=== PATIENT | female | born 1955 | race Caucasian/White ===

== ENCOUNTER 2017-01-01 08:58 | Inpatient (IN) | payer MEDICARE, OTHER ==
--- NOTE | ~2017-01-01 | IDS ---
Interim Discharge Summary [facility] [address] [place]. [address] NAME: ADAMS YANG : 59 STATUS : ADM IN [facility]#: [id number] AGE: 61 ADM/REG DATE : 01/01/17 MR#: [id number] REPORT SERV DATE: 01/02/17 DICTATED BY: MELVIN PABON IV DATE: 01/02/17 REPORT STATUS : Draft TRANSCRIBED BY: RONNIE DATE: 01/02/17 ADMISSION DATE: 01/01/2017 DISCHARGE DATE: DATE OF TRANSFER: 01/02/2017 ADMITTING DIAGNOSES: 1. Sepsis with hypotension. 2. Urinary tract infection. 3. Organic brain syndrome. 4. Electrolyte abnormalities, corrected. 5. Seizure disorder. 6. Elevated cholesterol. PROCEDURES: The patient had placement of a PICC line. CONSULTANTS: None. CURRENT MEDICATIONS: Amitiza 24 mcg twice a day, Ativan 0.5 mg three times a day, Celexa 40 mg daily, Clozaril 100 mg twice a day, vancomycin per Pharmacy, Lamictal 250 mg at bedtime and 200 mg in the morning, Lovenox 40 mg subcu daily, melatonin 3 mg at nighttime, Protonix 40 mg p.o. daily, thiamine 100 mg p.o. daily, Zocor 20 mg daily, Zosyn 3.375 q.8 hours, and Florastor one p.o. daily. HOSPITAL COURSE: The patient was recently hospitalized at [facility] on the hospitalist service for a Proteus urinary tract infection. The patient with a pansensitive organism, for which she was transitioned to [facility] and sent home. She did well for several days at home, however, developed listlessness and was hypotensive, for which she was brought back to the emergency room. Despite 2 L of fluid resuscitation, she continued to be hypotensive for which she was admitted to the ICU. Cultures were sent, and she had an elevated white blood cell count, though a normal procalcitonin level. The patient was transiently on Levophed, however, has been off since early this morning. She is currently back to her baseline which is constantly moving and somewhat agitated. She has been initiated on most of her home medications. She did have a low cortisol level though hydrocortisone was not started because she was already off the vasopressor agents. The sitter has due recorded that the patient has had some weight loss, for which I would consider an abdominal CT scan. However, she would likely need to be heavily sedated to obtain an adequate study. Fluids are decreased 75 mL an hour. She has remained on the current medications of the urinary tract with the urine culture negative, chest x-ray clear, and blood cultures currently pending. The patient is felt to be stable for transfer to the floor. We will send her back to the hospitalist service who will assume primary care. Family is aware, the sister is the POA. NELLY/RONNIE Interim Discharge Summary [address] [place]. [address] NAME: ADAMS YANG : 59 STATUS : ADM IN PAT#: [id number] AGE: 61 ADM/REG DATE : 01/01/17 MR#: [id number] REPORT SERV DATE: 01/02/17 DICTATED BY: MELVIN PABON IV DATE: 01/02/17 REPORT STATUS : Draft TRANSCRIBED BY: RONNIE DATE: 01/02/17 Melvin Pabon IV, M.D. / [id number] CC: Chucky Toro IV, M.D.
--- NOTE | ~2017-01-01 | HP ---
History And Physical [facility] [address] [place]. [address] NAME: ADAMS YANG : 59 STATUS : ADM IN [facility]#: [id number] AGE: 61 ADM/REG DATE : 01/01/17 MR#: [id number] REPORT SERV DATE: 01/02/17 DICTATED BY: MELVIN PABON IV DATE: 01/01/17 REPORT STATUS : Draft TRANSCRIBED BY: RONNIE DATE: 01/01/17 DATE OF ADMISSION: 01/01/2017 REASON FOR ADMISSION: Sepsis with hypotension. History was obtained from the caregiver and records. HISTORY OF PRESENT ILLNESS: Ms. Yang is a 61-year-old female with a history of elevated cholesterol, organic brain syndrome, seizure disorder, and autism who was recently hospitalized at [facility] for worsening encephalopathy and urinary tract infection who now presents initially with again altered mental status, however, with hypotension and a further rise in her white blood cell count. The patient was hospitalized approximately a week ago for worsening mental status. She was found to have a urinary tract infection with Proteus that was pansensitive. She had originally been placed on Bactrim at [facility], and when the organism was identified, she was sent home with Bactrim which she has continued. She had reportedly been back to baseline, however, was poorly responsive today. She was found to be hypotensive at the care facility and was sent to the emergency room. Her white count has risen from 8000 to 15,000, and she was hypotensive despite 2 L of IV fluid for which we are asked to admit the patient. The patient was now more awake and quite agitated. She had not received several of her psychiatric medications from earlier in the day. There had been no obvious focality to the patient's exam to include cough, dyspnea, hypoxemia, abdominal pain, diarrhea, nausea, or vomiting. The patient had fewer white blood cell count in her urinalysis. She has had a slowly progressive weight loss without a change in her dietary intake. Pulmonary history is remarkable for no history of childhood asthma, COPD, or previous documented pneumonia. She is reportedly a lifelong nonsmoker. She is reportedly up to date on her immunizations. PAST MEDICAL HISTORY: 1. Organic brain syndrome. 2. Seizure disorder. 3. Autism. 4. Elevated cholesterol. 5. Recent urinary tract infection. 6. Elevated cholesterol. SURGERIES: She had a tubal ligation. OUTPATIENT MEDICATIONS: Tylenol as needed. There are multiple p.r.n. medications. She is on vitamin C 500 mg twice a day, vitamin D3 1000 units twice a day, Celexa 40 mg daily, clozapine 100 mg twice a day, Lamictal 500 mg in the morning and 250 mg in the evening, Ativan 0.5 mg three times a day, Amitiza 24 mcg twice a day, melatonin 3 mg at bedtime, naltrexone 50 mg twice a day, Zocor 20 mg at bedtime, and Bactrim 1 tab q.12 hours. SOCIAL HISTORY: Remarkable for no tobacco, alcohol, or illicit drug use. She lives in [address] [address] NAME: ADAMS YANG : 59 STATUS : ADM IN [facility]#: [id number] AGE: 61 ADM/REG DATE : 01/01/17 MR#: [id number] REPORT SERV DATE: 01/02/17 DICTATED BY: MELVIN PABON IV DATE: 01/01/17 REPORT STATUS : Draft TRANSCRIBED BY: RONNIE DATE: 01/01/17 [facility]. She has a sister who is her POA. SURGICAL HISTORY: Remarkable for tubal ligation. ALLERGIES: LISTED ALLERGIES INCLUDE HALDOL, LOXAPINE, HYDROCORTISONE, FENTANYL, AND MEPERIDINE, SPECIFIC REACTIONS ARE UNKNOWN. FAMILY HISTORY: Not documented, and I did not ask the sister over the phone at the time of our discussion. REVIEW OF SYSTEMS: 14-systems reviewed and pertinent positives noted above. PHYSICAL EXAMINATION: GENERAL: This is a thin, chronically ill-appearing, elderly, female, appearing older than her stated age who is nonverbal, does not make eye contact, and will occasionally flail her extremities. VITAL SIGNS: Temperature is 97.9, pulse is 77, blood pressure is 100/66, respiratory rate is 16, and saturation 98% on room air. HEENT: The patient is normocephalic and atraumatic. She has some facial wrinkling. Pupils do react to light. She moves her eyes in all cervantes. She is edentulous. NECK: Without any palpable lymphadenopathy or thyromegaly. Chest: Difficult to examine since she will make grunting noises; however, seems to be clear to auscultation and percussion. No wheezes, rhonchi, or crackles noted. CARDIOVASCULAR: Jugular venous pulsations appear to be approximately 7 cm end expiration. She has a regular S1 and S2 with no clear murmur, S3, S4. Peripheral pulses are intact. ABDOMEN: Soft and nontender. There are active bowel sounds. There is no palpable hepatosplenomegaly or mass. EXTREMITIES: Demonstrate no cyanosis, clubbing, edema, or palpable cords. NEUROLOGIC: The patient moves all extremities. Strength seems to be 5/5. We cannot design maker sensation. LABORATORY DATA: Chest x-ray demonstrates no focal infiltrate. CBC: Hemoglobin 9.7, hematocrit 29.3, platelet count was 355,000, white count was 15.5 with 12 bands and 1 metamyelocyte. Chemistry: Sodium is 142, potassium 4.0, chloride 105, bicarbonate 28, lactate is 1, BUN of 27, creatinine 1.19, and glucose of 97, AST was slightly elevated at 47, otherwise unremarkable chemistry panel. Urinalysis demonstrates hazy, small leukocyte esterase. The white blood cells are 36, down from greater than 182 in her last hospitalization. ASSESSMENT AND PLAN: 1. Infectious Disease. Add procalcitonin level, we will put in the lab. She will be covered for healthcare organisms though I will change from cefepime to Zosyn because of concern about abdominal source. Further adjustments will depend on culture results. With the weight loss, the patient may benefit from an abdominal CT scan while hospitalized. Cultures have been sent, and there is no evidence for respiratory History And Physical [address] [address] NAME: ADAMS YANG : 59 STATUS : ADM IN [facility]#: [id number] AGE: 61 ADM/REG DATE : 01/01/17 MR#: [id number] REPORT SERV DATE: 01/02/17 DICTATED BY: MELVIN PABON IV DATE: 01/01/17 REPORT STATUS : Draft TRANSCRIBED BY: RONNIE DATE: 01/01/17 source. 2. Cardiovascular. Levophed if the patient's blood pressure drops. IV fluids with D5 LR at 125 mL an hour 3. 3. Renal. Electrolyte replacement protocol. We will add Mag and phos to blood in the lab. We will watch the patient's creatinine which is slightly elevated. 4. Gastrointestinal. N.p.o. except for medications with advance diet in the morning. Protonix to be given for GI prophylaxis. 5. Endocrinologic. Cortisol level will be obtained and thyroid functions will be obtained with her encephalopathy. 6. Neurologic. We will continue her home medications as much as possible. Precedex will be given since she was quite agitated on presentation. We will continue her Ativan though given IV. B12 and folate level will be obtained. 7. Hematologic. Lovenox for DVT prophylaxis. Iron studies will be obtained with low normal parameters. 8. Respiratory. X-ray is clear. Oxygen will be provided if needed to maintain saturations greater than 90%. The patient will be admitted to the MICU. I did speak to the sister. NELLY/RONNIE Melvin Pabon IV, M.D. / [id number] CC: Chucky Toro IV, M.D.
--- NOTE | ~2017-01-01 | IDS ---
Interim Discharge Summary [facility] [address] [place]. [address] NAME: ADAMS YANG : 59 STATUS : ADM IN PAT#: [id number] AGE: 61 ADM/REG DATE : 01/01/17 MR#: [id number] REPORT SERV DATE: 01/09/17 DICTATED BY: DATE: REPORT STATUS : Draft TRANSCRIBED BY: MODL DATE: 01/08/17 ADMISSION DATE: 01/01/2017 DISCHARGE DATE: INTERIM DISCHARGE DIAGNOSES: 1. Sepsis with hypotension. 2. Adrenal insufficiency. 3. Recent UTI with Proteus. 4. Organic brain syndrome. 5. Hypercholesterolemia. 6. Transaminitis. 7. Insomnia. CONSULTING PHYSICIANS: None. IMAGING: Includes multiple portable chest x-rays. Both chest x-rays were negative for an acute cardiopulmonary process. She had a third chest x-ray for placement of PICC line, which showed the tip in the superior vena cava. For full H and P, please refer to Dr. Husam Pabon's dictation on 01/01/2017 as well as his 2 interim discharge summaries; the first being 01/02/2017, and then 01/04/2017. HOSPITAL COURSE: The patient was admitted on 01/01/2017 for sepsis and hypotension. She was in the Intensive Care Unit until 01/05/2017. I took over the patient's care on 01/06/2017. It was believed that the patient had sepsis with hypotension. However, her blood cultures were negative. She did have a history of recent UTI with Proteus mirabilis. It was positive on 12/25/2016. Ultimately, there was not a clear source of infection for the diagnosis of sepsis. The patient was Levophed dependent for her blood pressure. She was placed on full IV steroids. Since 01/06/2017, her blood pressure has been stable. Her physical exam has been unremarkable. She does have organic brain syndrome, and she is nonverbal. Has multiple facial and body tics. She has a sitter with her [address] Pabon believed that she had some adrenal insufficiency. Again, she was on IV steroids. She was on hydrocortisone IV 50 mg q.12. Yesterday, the patient's sister and caregiver reported to me that she had only slept an hour in the last 48 hours and was getting very agitated. My plan was to taper the IV steroids to prevent medication-induced adrenal insufficiency. After talking with Dr. Tello and discussing the symptoms, he suggested that we discontinue the hydrocortisone yesterday and watch the patient overnight to see how she did. She is much more calm today where she was able to sleep overnight. However, she did have some hypotension today with blood pressure in the 90s. I decided that we should probably watch the patient one more night and check a cortisol level in the morning to ensure that she does not need further steroid treatment. Also, she has some transaminitis, so I am going to recheck her AST and ALT in the morning as well. Yesterday, her ALT was 108, and her AST was 82. After discussing this with Dr. Travis Tello, he believes this is likely medication induced. However, I do want check it before she goes to ensure it is not going up instead of down. The patient will go back to [facility] tomorrow if her cortisol level is okay, her blood pressure is stabilized, and transaminitis is improving. The case Interim Discharge Summary [address] [address] NAME: ADAMS YANG : 59 STATUS : ADM IN [facility]#: [id number] AGE: 61 ADM/REG DATE : 01/01/17 MR#: [id number] REPORT SERV DATE: 01/09/17 DICTATED BY: DATE: REPORT STATUS : Draft TRANSCRIBED BY: MODL DATE: 01/08/17 management is aware [facility]. Anthony were setting up for her discharge tomorrow, also to the medication reconciliation and placed on the chart. CLR/MODL Anthony Mitchell NP / [id number] CC: Chucky Wharton APN
--- NOTE | ~2017-01-01 | DS ---
Discharge Summary [facility] [address] [place]. [address] NAME: ADAMS YANG : 59 STATUS : DIS IN PAT#: [id number] AGE: 61 ADM/REG DATE : 01/01/17 MR#: [id number] REPORT SERV DATE: 01/12/17 DICTATED BY: JM ALVARADO DATE: 01/11/17 REPORT STATUS : Draft TRANSCRIBED BY: MODRaimundo DATE: 01/11/17 ADMISSION DATE: 01/01/2017 DISCHARGE DATE: 01/11/2017 REASON FOR ADMISSION: This is a 61-year-old female, who came into the hospital for presumed sepsis with hypotension. The patient had recently been hospitalized with encephalopathy and UTI and came back in with altered mental status and [place]ension [place] [address]. She had been found on outpatient to have UTI with Proteus that was lozoya-sensitive, and had been started on Bactrim. DISCHARGE DIAGNOSES: 1. Hypotension, possibly secondary to urosepsis, also relative adrenal insufficiency. 2. Elevated transaminases. 3. Organic brain syndrome. 4. Insomnia. HOSPITAL COURSE: Please see admission H and P from Husam Pabon MD 01/02/2017 and interim discharge summary from Husam Pabon MD on 01/04/2017, and interim discharge summary from Anthony Mitchell NP on 01/09/2017 for full details on admission and hospital stay. The patient was initially admitted and started on IV vasopressors, was found to have a cortisol level of 8 and was started on stress dose steroids and we were e able to wean her off vasopressors, and she was transferred out to the floor. Since that time, the patient had been completely weaned off steroids. Repeat cortisol level was found to be 11.7, and the patient continued to have hypotension with blood pressures running in the 80s to 90s over 40s and 50s. On 01/10/2017, she was given IV fluid bolus, started on midodrine and hydrocortisone. It was then discovered that the patient's blood pressure was being taken from her ankle because they were supposedly unable to keep the patient still to take her blood pressure in her arm, however, I was able to successfully take her blood pressure in her arm with the caregiver standing there, a sitter standing there, and her blood pressure was 110/60. From then on, blood pressures were checked from her arm, and her last blood pressure taken today before discharge was 122/55. I do recommend continuing her on hydrocortisone at discharge, and she might need to stay on low-dose hydrocortisone indefinitely. We will have her follow up with primary care about this issue. As far as her UTI, repeat urine labs here which showed no evidence of UTI with negative urine cultures x2, and the antibiotics were discontinued. She has had some elevated transaminases. No signs of abdominal pain. The unclear significance could just have been related to her hypotension on admission. No abdominal imaging was done. The patient is unable to sit still for any sort of imaging due to her organic brain syndrome, and her liver function panel has trended down, however, since admission with her ALT being 112 on admission, AST 103 on admission. Last check, her ALT was 103, and AST was 50. DISCHARGE CONDITION: Stable. DISCHARGE MEDICATIONS: 1. Lamictal 300 mg p.o. q.a.m. 2. Lamictal 250 mg p.o. at bedtime. Discharge Summary [address] [address] NAME: ADAMS YANG : 59 STATUS : DIS IN PAT#: [id number] AGE: 61 ADM/REG DATE : 01/01/17 MR#: [id number] REPORT SERV DATE: 01/12/17 DICTATED BY: JM ALVARADO DATE: 01/11/17 REPORT STATUS : Draft TRANSCRIBED BY: RONNIE DATE: 01/11/17 3. Zocor 20 mg p.o. daily. 4. Clozapine 100 mg p.o. b.i.d. 5. Ativan 0.5 mg p.o. t.i.d. 6. Celexa 40 mg p.o. daily. 7. Melatonin 3 mg p.o. at bedtime. 8. Bactroban ointment p.r.n. 9. Fish oil 1200 mg p.o. b.i.d. 10.Vitamin D3 1000 units p.o. b.i.d. 11.Vitamin C 500 mg p.o. b.i.d. 12.Colace 100 mg p.o. daily. 13.Glucosamine chondroitin one tablet p.o. daily. 14.Multivitamin one tablet daily. 15.Calcium 2 tablets p.o. b.i.d. 16.Milk of magnesia p.r.n. 17.Amitiza 24 mcg p.o. b.i.d. 18.Hydrocortisone 40 mg p.o. q.a.m. and 20 mg p.o. q.p.m. x4 days, then 30 mg p.o. q.a.m. and 20 mg p.o. q.p.m. x4 days, then 20 mg p.o. q.a.m. and 10 mg p.o. q.p.m. x4 days, then 10 mg p.o. q.a.m. and 5 mg p.o. q.p.m. indefinitely. DISCHARGE PLAN: Is for patient to return to [facility], PT evaluation here at the hospital which showed that she was at baseline function. I spoke with [facility] Director of Care and confirmed discharge plan. SHU/ANALISAL Jm Alvarado APN / [id number] CC: Chucky Wharton M.D.
--- NOTE | ~2017-01-01 | IDS ---
Interim Discharge Summary [facility] [address] [place]. [address] NAME: ADAMS AYNG : 59 STATUS : ADM IN [facility]#: [id number] AGE: 61 ADM/REG DATE : 01/01/17 MR#: [id number] REPORT SERV DATE: 01/04/17 DICTATED BY: MELVIN PABON IV DATE: 01/04/17 REPORT STATUS : Draft TRANSCRIBED BY: RONNIE DATE: 01/04/17 ADMISSION DATE: 01/01/2017 DISCHARGE DATE: Date of transfer the floor is 01/04/2017. ADMITTING DIAGNOSES: 1. Sepsis with hypotension though with all cultures negative with plan to discontinue Zosyn after doses today. 2. Recent Proteus urinary tract infection. 3. Clinical adrenal insufficiency, on tapering doses of steroids. 4. Organic brain syndrome, on home medications. 5. Elevated cholesterol. 6. Electrolyte abnormalities are being corrected. CONSULTANTS: None. PROCEDURES: The patient had a PICC line placement. CURRENT MEDICATIONS: Amitiza 24 mcg b.i.d., Ativan 0.5 mg q.8 hours, Celexa 40 mg daily, Clozaril 100 mg twice a day, Florastor one twice a day, vancomycin being discontinued now, Zosyn 3.375 g q.8 hours to be can be discontinued after today, Lamictal 250 mg at bedtime and 300 mg in the morning, Lovenox 40 mg daily, Protonix 40 mg daily, Solu-Cortef 50 mg q.8 hours, and Zocor 20 mg daily. HOSPITAL COURSE: The patient presented to the emergency room on 01/01/2017 with lethargy and hypotension. She received 2 units of IV fluid resuscitation. There was a transient improvement in her blood pressure, however, it again decreased. The patient was placed on Levophed, which she had been on an off until 01/03/2017, at which time, it has been discontinued. The patient had cultures performed, which have remained negative. Procalcitonin level was not elevated on two separate checks. She was empirically placed on Zosyn and vancomycin for presumed sepsis. She did have the previous urinary tract infection with Proteus and now has completed 10 days of appropriate therapy. Because of the patient's organic brain syndrome and constant movement, she would not be a candidate for imaging, however, has had normal chest x-ray and no focal findings on clinical exam. Because she continued to require vasopressor agents, a cortisol level was checked which was 8 for which she was placed on stress dose steroids. On the steroids, we were able to wean her off the vasopressors, so I would continue a very slow taper. She had some electrolyte abnormalities, which were corrected. It was felt that she was stable for transfer to the floor on 01/04/2017. We will ask Hospitalist Service to see the patient and assume primary responsibilities. NELLY/RONNIE Interim Discharge Summary [address] [place]. [address] NAME: ADAMS YANG : 59 STATUS : ADM IN PAT#: [id number] AGE: 61 ADM/REG DATE : 01/01/17 MR#: [id number] REPORT SERV DATE: 01/04/17 DICTATED BY: MELVIN PABON IV DATE: 01/04/17 REPORT STATUS : Draft TRANSCRIBED BY: RONNIE DATE: 01/04/17 Melvin Pabon IV, M.D. / [id number] CC: Chucky Toro IV, M.D.
[~2017-01-01 08:58] MED LIST: A&D OINTMENT T; AMITIZA8 MCG PO; ANTI-FUNGAL2 % EX; ATV.5 PO; BACDS PO; BACTROINT TOP; BISR PR; CELEXA40 MG PO; CITRACAL PO; CLOZAPINE100 MG PO; CLOZAPINE50 MG PO; COSAMIN DS1 TAB PO; DSS PO; FISH OIL1200 MG PO; LAMICTAL10 PO; LAMICTAL200 MG PO; LAMICTAL25 PO; MAGNESIUM HYDROXIDE PO; MELA3 PO; MULTIPLE VIT PO; NALTREXONE50 MG PO; RECLAST IV; T PO; THORAZINE 50 MG50 MG PO; TREX PO; UREA 40% TOP; VITAMIN A&D OINTMENT TOP; VITAMIN D31000 UNIT PO; VITC500 PO; ZOCOR20 PO; [UNRECOGNIZED DRUG - OTHER] EX
[2017-01-01 09:11] LABS: HEMATOCRIT 29.3 % (36.0-48.0); HEMOGLOBIN 9.7 g/dL (12.0-16.0); MEAN CORPUS HGB CONC 33.1 g/dL (32.0-36.0); MEAN CORPUSCULAR HEMOGLOB 29.4 pg (26.0-34.0); MEAN CORPUSCULAR VOLUME 88.8 fL (80-100); MEAN PLATELET VOLUME 8.9 fL (9.2-13.0); RBC DISTRIBUTION WIDTH 14.4 % (12.0-16.0)
[2017-01-01 09:13] LABS: ER CBC TAT 0 Hrs 07 Mins; MANUAL DIFF YES %; PLATELET COUNT 355 10/3/uL (150-400); WHITE BLOOD CELLS 15.5 10/3/uL (4.5-10.5)
[2017-01-01 09:20] LABS: ASCORBIC ACID (UR NOT ORDER) 40 (NEG); BILIRUBIN, URINE NEGATIVE (NEG); ER URINALYSIS TAT 0 Hrs 14 Mins; KETONE, URINE NEGATIVE (NEG); LEUKOCYTE ESTERASE(NOT OR SMALL (NEG); NITRITE (URINE) NEG (NEG); WBC (NOT ORDERED) (RFLEX) 36 (0-5)
[2017-01-01 09:29] LABS: A/G RATIO 0.7 (0.7-1.9); ALBUMIN 2.7 G/DL (3.5-5.0); ALKALINE PHOSPHATASE 84 U/L (45-117); BUN (BLOOD UREA NITROGEN) 27 MG/DL (6-23); CHLORIDE, SERUM 105 MMOL/L (96-112); CO2 (CARBON DIOXIDE) 28 MMOL/L (24-34); CREATININE 1.19 MG/DL (0.55-1.02); GFR AFRICAN AMERICAN 58 ML/MIN (>=60); GFR NON AFRICAN AMERICAN 50 ML/MIN (>=60); GLOBULIN 3.8 G/DL (2.5-4.1); GLUCOSE, SERUM 97 MG/DL (60-99); SGOT(AST) 47 U/L (5-40); SGPT(ALT) 54 U/L (5-65); SODIUM, SERUM 142 MMOL/L (135-148); TOTAL BILIRUBIN 0.5 MG/DL (0-1.2); TOTAL PROTEIN 6.5 G/DL (6.0-8.5)
[2017-01-01 09:58] LABS: BAND NEUTROPHILS 12 %; EOSINOPHILS 1 %; EOSINOPHILS ABSOLUTE (CALC) 0.16 10/3/uL (0.0-0.53); ER DIFF TAT 0 Hrs 52 Mins; IMMATURE GRANS ABSOLUTE (CALC) 0.16 10/3/uL (0.0-0.11); LYMPHOCYTES 6 %; LYMPHOCYTES ABSOLUTE (CALC) 0.93 10/3/uL (0.67-4.30); METAMYELOCYTES 1 %; MONOCYTES 14 %; MONOCYTES ABSOLUTE (CALC) 2.17 10/3/uL (0.21-1.20); NEUTROPHILS ABSOLUTE (CALC) 12.09 10/3/uL (2.02-8.40); PLATELET ESTIMATE ADQ (ADEQUATE); SEGMENTED NEUTROPHIL (0) 66 %; TOTAL NUCLEATED CELLS 100
[2017-01-01 09:59] LABS: RBC MORPHOLOGY NORM (NORMAL); TOXIC GRANULATION 1+
[2017-01-01] MEDS ORDERED: FISH OIL1200 MG PO (15:26)
[2017-01-01] MEDS ORDERED: LAC-HYDRIN TOP (15:26)
[2017-01-01] MEDS ORDERED: VITC500 PO (15:27)
[2017-01-01] MEDS ORDERED: VITAMIN D31000 UNIT PO (15:27)
[2017-01-01] MEDS ORDERED: GLUCCHONDR PO (15:28)
[2017-01-01] MEDS ORDERED: DSS PO (15:28)
[2017-01-01] MEDS ORDERED: CITRACAL PO (15:29)
[2017-01-01] MEDS ORDERED: THERGRANM PO (15:29)
[2017-01-01] MEDS ORDERED: AMITIZA24 PO (15:30)
[2017-01-01] MEDS ORDERED: MOMUD PO (15:30)
[2017-01-01] MEDS ORDERED: BACDS PO (15:35)
[2017-01-02 04:27] LABS: BASOPHILS 0.3 %; BASOPHILS ABSOLUTE 0.03 10/3/uL (0.0-0.16); EOSINOPHILS 2.8 %; EOSINOPHILS ABSOLUTE 0.27 10/3/uL (0.0-0.53); HEMOGLOBIN 9.1 g/dL (12.0-16.0); IMMATURE GRANULOCYTES 0.5 %; IMMATURE GRANULOCYTES ABSOLUTE 0.05 10/3/uL (0.0-0.11); LYMPHOCYTES 22.8 %; MEAN CORPUS HGB CONC 32.5 g/dL (32.0-36.0); MEAN CORPUSCULAR HEMOGLOB 29.6 pg (26.0-34.0); MEAN CORPUSCULAR VOLUME 91.2 fL (80-100); MEAN PLATELET VOLUME 8.5 fL (9.2-13.0); MONOCYTES 6.1 %; MONOCYTES ABSOLUTE 0.59 10/3/uL (0.21-1.20); NEUTROPHILS 67.5 %; NEUTROPHILS ABSOLUTE 6.53 10/3/uL (2.02-8.40); PLATELET COUNT 344 10/3/uL (150-400); RBC DISTRIBUTION WIDTH 14.2 % (12.0-16.0); RED CELL COUNT 3.07 10/6/uL (4.0-5.6); WHITE BLOOD CELLS 9.7 10/3/uL (4.5-10.5)
[2017-01-02 04:29] LABS: MANUAL DIFF NO %
[2017-01-02 05:30] LABS: ALBUMIN 2.3 G/DL (3.5-5.0); CHLORIDE, SERUM 110 MMOL/L (96-112); CO2 (CARBON DIOXIDE) 26 MMOL/L (24-34); CREATININE 1.01 MG/DL (0.55-1.02); FERRITIN 155 NG/ML (8-252); FREE T4 0.81 NG/DL (0.76-1.46); GFR AFRICAN AMERICAN 71 ML/MIN (>=60); GFR NON AFRICAN AMERICAN 61 ML/MIN (>=60); IRON BINDING CAPACITY 204 MCG/DL (225-410); IRON, SERUM 46 MCG/DL (35-150); PHOSPHORUS, SERUM 2.6 MG/DL (2.5-4.5); POTASSIUM, SERUM 3.8 MMOL/L (3.5-5.3); SODIUM, SERUM 143 MMOL/L (135-148)
[2017-01-02 05:50] LABS: BUN (BLOOD UREA NITROGEN) 19 MG/DL (6-23); CALCIUM, SERUM 7.9 MG/DL (8.5-10.4); FOLATE 48.8 NG/ML (>5.2); GLUCOSE, SERUM 119 MG/DL (60-99)
[2017-01-02 05:57] LABS: PROCALCITONIN 0.25 ng/mL (<0.5)
[2017-01-03 03:28] LABS: BASOPHILS 0.5 %; BASOPHILS ABSOLUTE 0.04 10/3/uL (0.0-0.16); EOSINOPHILS 3.2 %; EOSINOPHILS ABSOLUTE 0.27 10/3/uL (0.0-0.53); HEMATOCRIT 27.7 % (36.0-48.0); HEMOGLOBIN 9.1 g/dL (12.0-16.0); IMMATURE GRANULOCYTES 0.5 %; IMMATURE GRANULOCYTES ABSOLUTE 0.04 10/3/uL (0.0-0.11); LYMPHOCYTES 25.4 %; LYMPHOCYTES ABSOLUTE 2.13 10/3/uL (0.67-4.30); MANUAL DIFF NO %; MEAN CORPUS HGB CONC 32.9 g/dL (32.0-36.0); MEAN CORPUSCULAR HEMOGLOB 30.1 pg (26.0-34.0); MEAN CORPUSCULAR VOLUME 91.7 fL (80-100); MEAN PLATELET VOLUME 8.3 fL (9.2-13.0); MONOCYTES 8.4 %; NEUTROPHILS ABSOLUTE 5.19 10/3/uL (2.02-8.40); PLATELET COUNT 329 10/3/uL (150-400); RBC DISTRIBUTION WIDTH 14.3 % (12.0-16.0); RED CELL COUNT 3.02 10/6/uL (4.0-5.6); WHITE BLOOD CELLS 8.4 10/3/uL (4.5-10.5)
[2017-01-03 03:40] LABS: PHOSPHORUS, SERUM 2.5 MG/DL (2.5-4.5)
[2017-01-03 05:36] LABS: PROCALCITONIN 0.19 ng/mL (<0.5)
[2017-01-03 05:58] LABS: POTASSIUM, SERUM 4.3 MMOL/L (3.5-5.3); SODIUM, SERUM 144 MMOL/L (135-148)
[2017-01-03 05:59] LABS: BUN (BLOOD UREA NITROGEN) 19 MG/DL (6-23); CALCIUM, SERUM 8.2 MG/DL (8.5-10.4); CHLORIDE, SERUM 108 MMOL/L (96-112); CO2 (CARBON DIOXIDE) 28 MMOL/L (24-34); CREATININE 1.04 MG/DL (0.55-1.02); GFR AFRICAN AMERICAN 68 ML/MIN (>=60); GFR NON AFRICAN AMERICAN 59 ML/MIN (>=60); GLUCOSE, SERUM 82 MG/DL (60-99)
[2017-01-04 04:55] LABS: BASOPHILS 0.2 %; BASOPHILS ABSOLUTE 0.02 10/3/uL (0.0-0.16); EOSINOPHILS 0.1 %; EOSINOPHILS ABSOLUTE 0.01 10/3/uL (0.0-0.53); HEMATOCRIT 30.3 % (36.0-48.0); HEMOGLOBIN 9.9 g/dL (12.0-16.0); IMMATURE GRANULOCYTES 0.6 %; IMMATURE GRANULOCYTES ABSOLUTE 0.05 10/3/uL (0.0-0.11); LYMPHOCYTES ABSOLUTE 0.84 10/3/uL (0.67-4.30); MEAN CORPUS HGB CONC 32.7 g/dL (32.0-36.0); MEAN CORPUSCULAR HEMOGLOB 29.5 pg (26.0-34.0); MEAN CORPUSCULAR VOLUME 90.2 fL (80-100); MEAN PLATELET VOLUME 8.6 fL (9.2-13.0); MONOCYTES 2.4 %; NEUTROPHILS 86.7 %; NEUTROPHILS ABSOLUTE 7.28 10/3/uL (2.02-8.40); PLATELET COUNT 370 10/3/uL (150-400); RBC DISTRIBUTION WIDTH 13.9 % (12.0-16.0); RED CELL COUNT 3.36 10/6/uL (4.0-5.6); WHITE BLOOD CELLS 8.4 10/3/uL (4.5-10.5)
[2017-01-04 05:00] LABS: MANUAL DIFF NO %
[2017-01-04 05:11] LABS: BUN (BLOOD UREA NITROGEN) 16 MG/DL (6-23); CALCIUM, SERUM 8.6 MG/DL (8.5-10.4); CHLORIDE, SERUM 107 MMOL/L (96-112); CO2 (CARBON DIOXIDE) 26 MMOL/L (24-34); CREATININE 0.96 MG/DL (0.55-1.02); GFR AFRICAN AMERICAN 75 ML/MIN (>=60); GFR NON AFRICAN AMERICAN 65 ML/MIN (>=60); PHOSPHORUS, SERUM 2.7 MG/DL (2.5-4.5); POTASSIUM, SERUM 3.8 MMOL/L (3.5-5.3); SODIUM, SERUM 143 MMOL/L (135-148)
[2017-01-04 05:13] LABS: GLUCOSE, SERUM 137 MG/DL (60-99)
[2017-01-05 07:06] LABS: BASOPHILS 0.2 %; BASOPHILS ABSOLUTE 0.02 10/3/uL (0.0-0.16); EOSINOPHILS 0.1 %; EOSINOPHILS ABSOLUTE 0.01 10/3/uL (0.0-0.53); HEMATOCRIT 29.4 % (36.0-48.0); HEMOGLOBIN 9.8 g/dL (12.0-16.0); IMMATURE GRANULOCYTES 0.5 %; IMMATURE GRANULOCYTES ABSOLUTE 0.06 10/3/uL (0.0-0.11); LYMPHOCYTES 12.6 %; LYMPHOCYTES ABSOLUTE 1.51 10/3/uL (0.67-4.30); MEAN CORPUS HGB CONC 33.3 g/dL (32.0-36.0); MEAN CORPUSCULAR HEMOGLOB 30.2 pg (26.0-34.0); MEAN CORPUSCULAR VOLUME 90.7 fL (80-100); MEAN PLATELET VOLUME 8.8 fL (9.2-13.0); MONOCYTES 5.5 %; MONOCYTES ABSOLUTE 0.66 10/3/uL (0.21-1.20); NEUTROPHILS 81.1 %; NEUTROPHILS ABSOLUTE 9.77 10/3/uL (2.02-8.40); PLATELET COUNT 340 10/3/uL (150-400); RBC DISTRIBUTION WIDTH 13.9 % (12.0-16.0); RED CELL COUNT 3.24 10/6/uL (4.0-5.6)
[2017-01-05 07:09] LABS: MANUAL DIFF NO %
[2017-01-05 07:21] LABS: BUN (BLOOD UREA NITROGEN) 16 MG/DL (6-23); CALCIUM, SERUM 8.4 MG/DL (8.5-10.4); CHLORIDE, SERUM 108 MMOL/L (96-112); CO2 (CARBON DIOXIDE) 26 MMOL/L (24-34); CREATININE 1.01 MG/DL (0.55-1.02); GFR AFRICAN AMERICAN 71 ML/MIN (>=60); GFR NON AFRICAN AMERICAN 61 ML/MIN (>=60); GLUCOSE, SERUM 177 MG/DL (60-99); PHOSPHORUS, SERUM 2.6 MG/DL (2.5-4.5); POTASSIUM, SERUM 3.4 MMOL/L (3.5-5.3); SODIUM, SERUM 146 MMOL/L (135-148)
[2017-01-06 05:22] LABS: BASOPHILS 0.2 %; BASOPHILS ABSOLUTE 0.03 10/3/uL (0.0-0.16); EOSINOPHILS 0.6 %; EOSINOPHILS ABSOLUTE 0.07 10/3/uL (0.0-0.53); HEMATOCRIT 30.7 % (36.0-48.0); HEMOGLOBIN 9.6 g/dL (12.0-16.0); IMMATURE GRANULOCYTES 0.8 %; LYMPHOCYTES ABSOLUTE 2.78 10/3/uL (0.67-4.30); MEAN CORPUSCULAR HEMOGLOB 28.8 pg (26.0-34.0); MEAN CORPUSCULAR VOLUME 92.2 fL (80-100); MEAN PLATELET VOLUME 8.8 fL (9.2-13.0); MONOCYTES 7.5 %; MONOCYTES ABSOLUTE 0.91 10/3/uL (0.21-1.20); NEUTROPHILS 67.9 %; NEUTROPHILS ABSOLUTE 8.21 10/3/uL (2.02-8.40); PLATELET COUNT 358 10/3/uL (150-400); RBC DISTRIBUTION WIDTH 14.5 % (12.0-16.0); RED CELL COUNT 3.33 10/6/uL (4.0-5.6); WHITE BLOOD CELLS 12.1 10/3/uL (4.5-10.5)
[2017-01-06 05:26] LABS: MANUAL DIFF NO %; MEAN CORPUS HGB CONC 31.3 g/dL (32.0-36.0)
[2017-01-06 05:34] LABS: A/G RATIO 0.7 (0.7-1.9); ALBUMIN 2.1 G/DL (3.5-5.0); CALCIUM, SERUM 8.5 MG/DL (8.5-10.4); CHLORIDE, SERUM 110 MMOL/L (96-112); CO2 (CARBON DIOXIDE) 29 MMOL/L (24-34); CREATININE 0.92 MG/DL (0.55-1.02); GFR AFRICAN AMERICAN 79 ML/MIN (>=60); GFR NON AFRICAN AMERICAN 68 ML/MIN (>=60); GLOBULIN 3.2 G/DL (2.5-4.1); POTASSIUM, SERUM 4.1 MMOL/L (3.5-5.3); SGOT(AST) 103 U/L (5-40); SGPT(ALT) 112 U/L (5-65); SODIUM, SERUM 146 MMOL/L (135-148); TOTAL BILIRUBIN 0.2 MG/DL (0-1.2); TOTAL PROTEIN 5.3 G/DL (6.0-8.5)
[2017-01-06 05:35] LABS: ALKALINE PHOSPHATASE 60 U/L (45-117); BUN (BLOOD UREA NITROGEN) 21 MG/DL (6-23); GLUCOSE, SERUM 94 MG/DL (60-99)
[2017-01-06 06:27] LABS: PROCALCITONIN 0.07 ng/mL (<0.5)
[2017-01-07 03:59] LABS: BASOPHILS 0.4 %; BASOPHILS ABSOLUTE 0.04 10/3/uL (0.0-0.16); EOSINOPHILS 0.6 %; EOSINOPHILS ABSOLUTE 0.06 10/3/uL (0.0-0.53); HEMATOCRIT 28.5 % (36.0-48.0); HEMOGLOBIN 9.2 g/dL (12.0-16.0); LYMPHOCYTES 23.3 %; MEAN CORPUS HGB CONC 32.3 g/dL (32.0-36.0); MEAN CORPUSCULAR HEMOGLOB 29.9 pg (26.0-34.0); MEAN CORPUSCULAR VOLUME 92.5 fL (80-100); MEAN PLATELET VOLUME 8.5 fL (9.2-13.0); MONOCYTES 7.5 %; MONOCYTES ABSOLUTE 0.77 10/3/uL (0.21-1.20); NEUTROPHILS 67.2 %; NEUTROPHILS ABSOLUTE 6.93 10/3/uL (2.02-8.40); PLATELET COUNT 346 10/3/uL (150-400); RBC DISTRIBUTION WIDTH 14.6 % (12.0-16.0); RED CELL COUNT 3.08 10/6/uL (4.0-5.6); WHITE BLOOD CELLS 10.3 10/3/uL (4.5-10.5)
[2017-01-07 04:01] LABS: MANUAL DIFF NO %
[2017-01-07 04:13] LABS: BUN (BLOOD UREA NITROGEN) 22 MG/DL (6-23); CALCIUM, SERUM 8.4 MG/DL (8.5-10.4); CHLORIDE, SERUM 107 MMOL/L (96-112); CO2 (CARBON DIOXIDE) 28 MMOL/L (24-34); GFR AFRICAN AMERICAN 81 ML/MIN (>=60); GFR NON AFRICAN AMERICAN 70 ML/MIN (>=60); GLUCOSE, SERUM 120 MG/DL (60-99); POTASSIUM, SERUM 3.8 MMOL/L (3.5-5.3); SGOT(AST) 82 U/L (5-40); SGPT(ALT) 108 U/L (5-65); SODIUM, SERUM 142 MMOL/L (135-148)
[2017-01-09 07:01] LABS: BASOPHILS 0.5 %; BASOPHILS ABSOLUTE 0.04 10/3/uL (0.0-0.16); EOSINOPHILS 3.5 %; EOSINOPHILS ABSOLUTE 0.27 10/3/uL (0.0-0.53); HEMOGLOBIN 9.9 g/dL (12.0-16.0); IMMATURE GRANULOCYTES ABSOLUTE 0.08 10/3/uL (0.0-0.11); LYMPHOCYTES 33.7 %; LYMPHOCYTES ABSOLUTE 2.62 10/3/uL (0.67-4.30); MEAN CORPUS HGB CONC 31.5 g/dL (32.0-36.0); MEAN CORPUSCULAR HEMOGLOB 28.9 pg (26.0-34.0); MEAN CORPUSCULAR VOLUME 91.5 fL (80-100); MEAN PLATELET VOLUME 8.7 fL (9.2-13.0); MONOCYTES 8.4 %; MONOCYTES ABSOLUTE 0.65 10/3/uL (0.21-1.20); NEUTROPHILS 52.9 %; NEUTROPHILS ABSOLUTE 4.11 10/3/uL (2.02-8.40); PLATELET COUNT 350 10/3/uL (150-400); RED CELL COUNT 3.43 10/6/uL (4.0-5.6); WHITE BLOOD CELLS 7.8 10/3/uL (4.5-10.5)
[2017-01-09 07:06] LABS: HEMATOCRIT 31.4 % (36.0-48.0); MANUAL DIFF NO %
[2017-01-09 07:31] LABS: BUN (BLOOD UREA NITROGEN) 22 MG/DL (6-23); CALCIUM, SERUM 8.8 MG/DL (8.5-10.4); CHLORIDE, SERUM 104 MMOL/L (96-112); CO2 (CARBON DIOXIDE) 31 MMOL/L (24-34); CREATININE 0.94 MG/DL (0.55-1.02); GFR AFRICAN AMERICAN 77 ML/MIN (>=60); GFR NON AFRICAN AMERICAN 66 ML/MIN (>=60); GLUCOSE, SERUM 77 MG/DL (60-99); POTASSIUM, SERUM 3.8 MMOL/L (3.5-5.3); SGOT(AST) 69 U/L (5-40); SGPT(ALT) 130 U/L (5-65); SODIUM, SERUM 140 MMOL/L (135-148)
[2017-01-10 10:37] LABS: A/G RATIO 0.7 (0.7-1.9); ALBUMIN 2.3 G/DL (3.5-5.0); ALKALINE PHOSPHATASE 68 U/L (45-117); CHLORIDE, SERUM 110 MMOL/L (96-112); CREATININE 0.91 MG/DL (0.55-1.02); GFR AFRICAN AMERICAN 80 ML/MIN (>=60); GFR NON AFRICAN AMERICAN 69 ML/MIN (>=60); GLOBULIN 3.3 G/DL (2.5-4.1); GLUCOSE, SERUM 81 MG/DL (60-99); SGPT(ALT) 103 U/L (5-65); SODIUM, SERUM 142 MMOL/L (135-148); TOTAL BILIRUBIN 0.2 MG/DL (0-1.2); TOTAL PROTEIN 5.6 G/DL (6.0-8.5)
[2017-01-10 10:38] LABS: BUN (BLOOD UREA NITROGEN) 29 MG/DL (6-23); CALCIUM, SERUM 7.6 MG/DL (8.5-10.4); CO2 (CARBON DIOXIDE) 23 MMOL/L (24-34); SGOT(AST) 50 U/L (5-40)
[2017-01-11] MEDS ORDERED: CORTEF5 PO (15:47)
== END 2017-01-11 15:59 | DRG 871 ==
LOC: ER 08:58 → MIC 17:14 → 4SO 01-05 19:17
PROVIDERS: Emergency Medicine; Internal Medicine; Internal Medicine Critical Care Medicine; Nurse Practitioner Acute Care
PROC: 3E043XZ Introduction of Vasopressor into Central Vein, Percutaneous Approach (ICD-10-PCS; principal; 2017-01-01)
PROC: 02HV33Z Insertion of Infusion Device into Superior Vena Cava, Percutaneous Approach (ICD-10-PCS; principal; 2017-01-01)
PROC: 4A02X4A Measurement of Cardiac Electrical Activity, Guidance, External Approach (ICD-10-PCS; principal; 2017-01-01)
DX: A41.89 Other specified sepsis (principal); R65.21 Severe sepsis with septic shock; G93.40 Encephalopathy, unspecified; N39.0 Urinary tract infection, site not specified; F84.0 Autistic disorder; E27.40 Unspecified adrenocortical insufficiency; N17.9 Acute kidney failure, unspecified; E78.00 Pure hypercholesterolemia, unspecified; F09 Unspecified mental disorder due to known physiological condition; G40.909 Epilepsy, unspecified, not intractable, without status epilepticus; Z87.440 Personal history of urinary (tract) infections; Z88.8 Allergy status to other drugs, medicaments and biological substances; Z88.5 Allergy status to narcotic agent; Z91.09 Other allergy status, other than to drugs and biological substances; G47.00 Insomnia, unspecified; B96.4 Proteus (mirabilis) (morganii) as the cause of diseases classified elsewhere; E87.6 Hypokalemia; F41.9 Anxiety disorder, unspecified; R74.0 Nonspecific elevation of levels of transaminase and lactic acid dehydrogenase [LDH]
CPT/HCPCS: 36569; 71010; 80048; 80053; 80069; 81001; 82533; 82607; 82728; 82746; 82962; 83036; 83540; 83550; 83605; 83735; 84100; 84132; 84145; 84439; 84443; 84450; 84460; 85025; 87040; 87086; 87641; 97161-GP; 99291; A9270-GY; C1751; C9113; G8978-CK-GP; G8979-CK-GP; G8980-CK-GP; J1720; J2543; J3370